=== PATIENT | male | born 1975 | race African-American/Black ===

== ENCOUNTER 2023-11-28 20:35 | Inpatient (IN) | payer MEDICAID, SELFPAY ==
[2023-11-28 20:36] VITALS: BP 120/78; PULSE 82; RESP 16; TEMP 36.6; O2SAT 98; BMI 30.4
--- NOTE | 2023-11-28 21:15 | EDS_ITS ---
HPI History of Present Illness Chief Complaint: ETOH Intox Informant: patient Narrative Narrative: Patient presents requesting alcohol detox. He states he is lost several family members recently to alcoholism and cirrhosis and decides he wants to stop drinking. He tells me he has been drinking wild Yadira. He states a friend is also been giving him some pills. When asked specifically what this is he believes they were Xanax pills. Patient's last drink was earlier today. Patient is a poor historian. He tells me has a history of epilepsy as well as asthma. When I review records and [facility], I find an ER note from [facility] in January 2023 that indicates he has a history of CVA with thrombectomy, depression, diabetes, dyslipidemia, hypercoagulable state on chronic Plavix and warfarin, DVT. PFSH PFS Medical History (Updated 11/28/23 @ 22:[address] Janie Marks MD) AA (alcohol abuse) Asthma CVA (cerebral vascular accident) Depression Diabetes DVT (deep venous thrombosis) Epilepsy High cholesterol HTN (hypertension) Hypercoagulable state Home Medications oxcarbazepine 300 mg tablet (Trileptal) 300 mg PO BID 11/28/23 [History Last Taken Unknown] Allergy/AdvReac Type Severity Reaction Status Date / Time enoxaparin [From Lovenox] Allergy Angioedema Verified 11/28/23 20:41 Iodinated Contrast Media Allergy Angioedema Verified 11/28/23 20:41 pork derived (porcine) Allergy Anaphylaxis Verified 11/28/23 20:41 Surgical History (Updated 11/28/23 @ 22:[address] Dina Jalloh MD) H/O vascular surgery Social History Smoking Status: Never smoker ROS ROS ED Constitutional Constitutional ED: Denies chills or fever(s) Eyes Eyes: Denies change in vision ENT ENT ED: Denies rhinorrhea Cardiovascular Cardiovascular: Denies chest pain or palpitations Respiratory/Chest Respiratory/Chest: Denies cough or dyspnea Gastrointestinal Gastrointestinal: Denies abdominal pain, diarrhea, nausea or vomiting Genitourinary Genitourinary ED: Denies dysuria Neurologic Neurologic: Denies headache(s) Psychiatric Psychiatric: Reports anxiety EXAM Physical Exam Const Vital Signs: 11/28/23 20:36 Temperature 97.8 F Temperature Source Temporal Pulse Rate 82 Respiratory Rate 16 Blood Pressure 120/78 Blood Pressure Mean 92 Pulse Ox 98 Oxygen Delivery Method Room Air Positive well nourished and well developed General Appearance ED: well developed HEENT Reports moist mucous membranes Eyes EOMs intact bilaterally Chest Wall inspection of chest normal and palpation of chest normal Resp normal respiratory effort and clear to auscultation bilaterally Cardio regular rate and regular rhythm GI non-tender Palpation: soft Extremity Extremity Narrative: Old scarring noted to left lower extremity. Neuro oriented x3 Neuro Narrative: Slurred speech which appears chronic from prior stroke. Skin no rashes or lesions noted MDM MDM MDM Narrative Medical decision making narrative: Lab work for addiction medicine obtained. Patient's urine tox screen is positive for benzos and cocaine. Nursing staff has been able to establish an IV line but not get blood. Lab will be up to drawl blood work. I spoke with hospitalist and patient be admitted to [facility] [place]. Lab Data Labs: Laboratory Results - last 24 hr 11/28/23 20:50 Urine Opiates Screen NEGATIVE Urine Methadone Screen NEGATIVE Ur Barbiturates Screen NEGATIVE Ur Phencyclidine Scrn NEGATIVE Ur Amphetamines Screen NEGATIVE MDMA (Ecstasy) Screen NEGATIVE U Benzodiazepines Scrn POSITIVE H Urine Cocaine Screen POSITIVE H U Cannabinoids Screen NEGATIVE Ur Drug Screen Comment Discharge Plan Triage Chief Complaint: ETOH Intox ED Provider: Janei Marks Dx/Rx/DC Orders Clinical Impression: Desire for detoxification, Alcohol abuse Prescriptions: No Action oxcarbazepine [Trileptal] 300 mg tablet 300 mg PO BID Primary Care Provider: Care Physician,No Primary Referrals: NOT,DEFINED [Non-Staff] - Disposition Disposition: Acute Care Hospital [facility]
[2023-11-28 21:35] LABS: Amphetamine Urine VISTA NEGATIVE (<1000 ng/mL); Barbiturate Urine VISTA NEGATIVE (< 200 ng/mL); Benzodiazepine Urine VISTA POSITIVE (< 200 ng/mL); Cocaine Urine VISTA POSITIVE (< 300 ng/mL); Ecstacy Urine VISTA NEGATIVE (< 500 ng/mL); Methadone Urine VISTA NEGATIVE (< 300 ng/mL); PCP Urine VISTA NEGATIVE (< 25 ng/mL); THC Urine VISTA NEGATIVE (< 50 ng/mL); Vista UDS pH Range 5
--- NOTE | 2023-11-28 22:45 | PCM.HP.STD ---
HPI - General General Date of Admission: 11/28/23 Date of Service: 11/28/23 Chief Complaint: Alcohol withdrawal treatment request. HPI Narrative The patient is a 48 y/o M w/ PMHx: Hx CVA s/p thrombectomy w/ chronic R sided facial droop/dysarthria, Anxiety and Depression/schizophrenia/bipolar disorder, Asthma/COPD, Chronic anemia, Hx VTE (DVT, PE), Epilepsy, GERD, HTN, HLD, Hypercoagulable state (unclear specifics), Polysubstance abuse history with Possible Hepatitis C who presents to the [facility] ED on 11/28/23 with specific request for alcohol detoxification as he notes that he drinks wild Yadira heavily and has had several family past secondary to alcoholic cirrhosis including his parents with his last drink he reports earlier in the day on day of presentation and also notes that he does take random pills from his friend which may have included also Xanax. Patient notes very minimal nausea, mild tremors and tactile disturbances. He does report that given his intention to discontinue alcohol consumption he thought that he was able to go off of some of his medications including his Coumadin as alcohol abuse he felt was because of his stroke and his hypercoagulable state. These items were discussed at length and appropriate medication intake was again discussed. Workup in the ED included T97.8, heart rate 82, BP 120/78, respiratory rate 16, 98% on room air, CBC with WBC 6.1, human 14.6, platelet 210 with increased immature granulocytes, BMP with chloride 108, BUN/creatinine 13/0.68, calcium 8.4 otherwise unremarkable, hepatic profile unremarkable, UDS with positive benzodiazepines and cocaine, ethyl alcohol less than 3. c. [facility] Medical History (Updated 11/29/23 @ 01:[address] Dina Jalloh MD) AA (alcohol abuse) Anemia Anxiety and depression Asthma-COPD overlap syndrome Bipolar disorder CVA (cerebral vascular accident) Epilepsy GERD (gastroesophageal reflux disease) Hepatitis High cholesterol History of venous thromboembolism HTN (hypertension) Hypercoagulable state Kidney stones Migraines Schizophrenia Substance abuse Home Medications atorvastatin 20 mg tablet 20 mg PO DAILY HLD 11/28/23 [History Last Taken Unknown] budesonide-formoterol HFA 160 mcg-4.5 mcg/actuation aerosol inhaler (Symbicort) 2 inh inhalation Q12H COPD 11/28/23 [History Last Taken Unknown] levetiracetam 500 mg tablet 500 mg PO BID Seizure 11/28/23 [History Last Taken Unknown] oxcarbazepine 300 mg tablet (Trileptal) 300 mg PO BID 11/28/23 [History Last Taken Unknown] Allergy/AdvReac Type Severity Reaction Status Date / Time enoxaparin [From Lovenox] Allergy Angioedema Verified 11/28/23 20:41 Iodinated Contrast Media Allergy Angioedema Verified 11/28/23 20:41 pork derived (porcine) Allergy Anaphylaxis Verified 11/28/23 20:41 Family History (Updated 11/29/23 @ 01:[address] iDna Jalloh MD) Mother Seizures Hypertension Alcoholic cirrhosis Alcohol abuse Heart disease Father Seizures Hypertension Alcoholic cirrhosis Alcohol abuse Heart disease Surgical History (Updated 11/28/23 @ 22:[address] Dina Jalloh MD) H/O vascular surgery Social History (Updated 11/29/23 @ 01:[address] Dina Jalloh MD) household members: other details: Reports living at the [facility]. Smoking Status: Never smoker alcohol intake: current alcohol intake frequency: 3 or more drinks per day Alcohol type: hard liquor substance use type: other details: Notes taking pills friends give him including xanax. ROS ROS Narrative Admission Review of Systems: CONSTITUTIONAL: No weight loss, fever, chills, + weakness or fatigue. HEENT: Eyes: No visual loss, blurred vision, double vision or yellow sclerae. Ears, Nose, Throat: No hearing loss, sneezing, congestion, runny nose or sore throat. SKIN: No rash or itching, lesions, wounds. CARDIOVASCULAR: No chest pain, chest pressure or chest discomfort, palpitations, edema, orthopnea, syncopal events. RESPIRATORY: No shortness of breath, cough or sputum, wheezing, hemoptysis. GASTROINTESTINAL: + anorexia, nausea without vomiting. No diarrhea, abdominal pain, melena, BRBPR. GENITOURINARY: No dysuria, frequency, urgency or retention. NEUROLOGICAL: + Mild tremors and tactile disturbances, history of previous CVA with chronic deficits including right-sided facial droop, dysarthria, history of seizure disorder.. No headache, dizziness, syncope, paralysis, ataxia, change in bowel or bladder control. MUSCULOSKELETAL: + muscle, back pain, joint pain or stiffness. HEMATOLOGIC: + anemia. Recent discontinuation of Coumadin for patient with previous easy bleeding/bruising. LYMPHATICS: No enlarged nodes. No history of splenectomy. PSYCHIATRIC: + History of anxiety and depression/bipolar disorder/schizophrenia. ENDOCRINOLOGIC: No reports of sweating, cold or heat intolerance. No polyuria or polydipsia. ALLERGIES: + History of asthma, angioedema, anaphylaxis. Vital Signs Vital Signs Vital Signs: 11/28/23 20:36 11/28/23 23:21 11/28/23 23:42 Temperature 97.8 F 97.9 F Temperature Source Temporal Pulse Rate 82 66 68 Respiratory Rate 16 18 18 Blood Pressure 120/78 116/75 118/84 H Blood Pressure Mean 92 88 95 Pulse Ox 98 100 100 Oxygen Delivery Method Room Air Room Air 11/29/23 00:40 Temperature Temperature Source Pulse Rate Respiratory Rate Blood Pressure Blood Pressure Mean Pulse Ox 99 Oxygen Delivery Method Room Air Weight Weight: 196 lb 3.382 oz Body Mass Index (BMI) 29.8 Physical Exam Narrative Physical Examination: General: Awake, alert, oriented x 3 and cooperative, seated upright in the ED bed, notes mild withdrawal symptoms currently including tactile disturbances and tremors. Skin: Normal color, normal turgor, no icterus, no cyanosis. HEENT: AT/NC, EOMI, PERRLA, mildly dry MM, right facial droop evident with chronic dysarthria, no carotid bruits or JVD noted. Lungs: Mildly diminished, greater bases, appropriate effort, no rales, ronchi or wheezing. Heart: Regular rate and rhythm; no gallop, rub audible. Abdomen: Soft, overweight, NTTP, ND, mildly hyperactive BS, mild HM appreciated. Extremities: No cyanosis, clubbing, or edema. Neurological: Patient awake, alert, oriented as noted, cognitive function suspect currently at baseline status post previous CVA; pupils equally reactive to light and accommodation, cranial nerves grossly normal, moving extremities, previous CVA as noted, strength moderately global decreased secondary to underlying comorbidities and current acute alcohol withdrawal symptoms. Psychiatric: Affect appears mildly restless, fatigued, no acute evidence of depressive or anxiety feelings but does have notable underlying history as well as bipolar disorder and schizophrenia. Results Lab / Micro Data 11/28/23 23:36 11/28/23 23:36 Labs: Laboratory Results - last 24 hr 11/28/23 20:50: Urine Opiates Screen NEGATIVE, Urine Methadone Screen NEGATIVE, Ur Barbiturates Screen NEGATIVE, Ur Phencyclidine Scrn NEGATIVE, Ur Amphetamines Screen NEGATIVE, MDMA (Ecstasy) Screen NEGATIVE, U Benzodiazepines Scrn POSITIVE H, Urine Cocaine Screen POSITIVE H, U Cannabinoids Screen NEGATIVE, Ur Drug Screen Comment 11/28/23 23:36: WBC 6.1, RBC 5.17, Hgb 14.6, Hct 43.8, MCV 84.7, MCH 28.2, MCHC 33.3, RDW Std Deviation 42.5, RDW Coeff of Matthew 13.9, Plt Count 210, MPV 10.3, Immature Gran % (Auto) 1.800 H, Neut % (Auto) 69.7, Lymph % (Auto) 19.7, Morrill % (Auto) 6.9, Eos % (Auto) 1.1, Baso % (Auto) 0.8, Absolute Neuts (auto) 4.2, Absolute Lymphs (auto) 1.20, Nucleated RBC % 0, PT 13.9, INR 1.1, Sodium 139, Potassium 4.4, Chloride 108 H, Carbon Dioxide 25.0, Anion Gap 6, BUN 13, Creatinine 0.68 L, Estim Creat Clear Calc 146.68, Est GFR (MDRD) Af Amer 158, Est GFR (MDRD) Non-Af 131, BUN/Creatinine Ratio 19.1, Glucose 105, Calcium 8.4 L, Phosphorus 2.8, Magnesium 2.0, Total Bilirubin 0.40, AST 17, ALT 26, Alkaline Phosphatase 96, Total Protein 7.1, Albumin 3.7, Globulin 3.4, Albumin/Globulin Ratio 1.1, Ethyl Alcohol < 3.0 Assessment & Plan Assessment/Plan (1) Desire for detoxification: PLAN: Plan The patient is a 48 y/o M w/ PMHx: Hx CVA s/p thrombectomy w/ chronic R sided facial droop/dysarthria, Anxiety and Depression/schizophrenia/bipolar disorder, Asthma/COPD, Chronic anemia, Hx VTE (DVT, PE), Epilepsy, GERD, HTN, HLD, Hypercoagulable state (unclear specifics), Polysubstance abuse history with Possible Hepatitis C who presents to the [facility] ED on 11/28/23 with specific request for alcohol detoxification as he notes that he drinks wild Yadira heavily and has had several family past secondary to alcoholic cirrhosis including his parents with his last drink he reports earlier in the day on day of presentation and also notes that he does take random pills from his friend which may have included also Xanax. #1. Acute EtOH Withdrawal: Will admit to [facility], routine labs obtained in the ED upon presentation as noted. Given interest in sobriety, will initiate and continue on protocol with taper course of Phenobarbital, as needed gabapentin, Catapres, Bentyl, Vistaril, IV fluids, IV antiemetics, Tylenol as needed for pain. Will consult Case management for assistance for transition to next level of rehabilitation care. Mag, phos pending. Maintain on CIWA protocol concurrently. #2. Homeless status: Patient currently residing at the [facility] he notes but from discussion with staff patient may not always have a place to stay and do think that he likely is homeless, case management/social work consulted as patient is certainly high risk for failure to follow-up as evidenced also by his inability to appropriately keep on his medications, high risk for return. #3. History of VTE with reported hypercoagulable state, unclear specific type: Patient with history of DVT, PE, for unclear reasons patient was under the assumption that if he stopped drinking alcohol he does not need to be on Coumadin however discussed that we would need to restart this medication. He does have history of significant reaction to Lovenox and he is uncertain of prior history or reaction to heparin therefore we will start Coumadin with a low-dose and continue to closely trend INR. #4. History CVA: Status post thrombectomy, chronic deficits including right facial droop and dysarthria, will continue asa, restarting coumadin as patient had stopped ~ 1 week prior he notes, will resume statin therapy, BP normal range thus will defer hypertensive regimen, hemoglobin A1c requested to be cautious given unclear history. #5. Concern for Polysubstance Abuse, Possible History of Hepatitis, unclear type: UDS with benzodiazepines and cocaine of note, Will obtain hepatitis panel, RPR and HIV, encouraged clean status and avoidance of taking random pills given to him. #6. Chronic COPD/asthma: Will hold home inhaler and in the interim will place on ATC budesonide therapy, PRN albuterol, HOB, IS parameters. #7. Epilepsy: Clarifying but currently medications listed include Trileptal and Keppra, will continue both but adjust once medications confirmed. #8. Anxiety and depression/bipolar disorder/schizophrenia: Currently clarify medications as certainly Trileptal could be primarily for his bipolar disorder but he also does have epilepsy history, no other psychiatric medications noted but confirming. #9. Chronic anemia: Reported history potentially per patient, admission hemoglobin 14.6, MCV 84.7, unclear baseline. #10. Tobacco Abuse: Encouraged cessation, inpatient consultation per RT, NR if desired. #11. GERD: We will have Mylanta as needed regimen. #12. DVT prophylaxis: As noted will resume Coumadin, defer overlap as patient is a poor historian already reports a history of angioedema with Lovenox, unsure of heparin, additionally will place on SCDs as initially very subtherapeutic. Charges/Coding Visit Charges Inpatient E&M: 87840 Init Hosp L3
[2023-11-28 23:21] VITALS: BP 116/75; PULSE 66; RESP 18; O2SAT 100
[2023-11-28 23:42] VITALS: BP 118/84; PULSE 68; RESP 18; TEMP 36.6; O2SAT 100
--- NOTE | 2023-11-28 23:44 | ED.RN ---
Pt is a very difficult stick for an IV and labs,multiple nurses attempted.
[2023-11-29] VITALS (8 sets, daily range): BP systolic 106–117; BP diastolic 57–75; PULSE 69–85; RESP 16–18; TEMP 36.4–36.6; O2SAT 96–100; BMI 29.8
[2023-11-29 00:20] LABS: Alcohol, Blood (Medical)-Serum < 3.0 mg/dL
[2023-11-29 00:21] LABS: Phosphorus 2.8 mg/dL (2.5-4.9)
[2023-11-29 00:23] LABS: ALB/GLOB Ratio 1.1 RATIO (0.9-2.4); AST(SGOT) 17 U/L (15-37); Alanine Aminotransfer ALT/SGPT 26 U/L (16-61); Albumin, Serum 3.7 g/dL (3.2-5.0); Alkaline Phosphatase 96 U/L (45-117); Anion Gap 6 (5-15); BUN 13 mg/dL (7-18); BUN/Creat Ratio 19.1 RATIO (10-20); Calcium,Total 8.4 mg/dL (8.5-10.1); Chloride 108 mmol/L (98-107); Creatinine, Serum 0.68 mg/dL (0.70-1.30); EST Glomerular Filtration Rate 131 mL/min (>60); Est Glom Filt Rate - Afr Amer 158 mL/min (>60); Estimated Creatinine Clearance 146.68 ml/min; Globulin 3.4 g/dL (2.2-4.2); Glucose 105 mg/dL (74-106); Potassium 4.4 mmol/L (3.5-5.1); Protein, Total 7.1 g/dL (6.4-8.2); Sodium Level 139 mmol/L (136-145)
[2023-11-29 00:30] LABS: International Normalized Ratio 1.1; Prothrombin Time (Protime)PT. 13.9 SECONDS (11.7-14.9)
[2023-11-29 01:02] LABS: Absolute Neutrophil Count 4.2 X10^3/uL (2.0-7.7); Basophil# 0.05 X10^3/uL; Basophil% 0.8 % (0-1); Eosinophil# 0.07 X10^3/uL; Eosinophils% 1.1 % (0-5); Hematocrit 43.8 % (40-54); Hemoglobin 14.6 g/dL (13.0-16.5); Lymphocyte % 19.7 % (19-41); Mean Corp Hgb Conc 33.3 g/dL (32-36); Mean Corpuscular Hgb 28.2 pg (27.0-32.0); Mean Corpuscular Volume 84.7 fL (80-94); Mean Platelet Vol. 10.3 fl (6.2-12.0); Monocyte# 0.42 X10^3/uL; Monocyte% 6.9 % (0-10); NRBC Flagged by Analyzer 0 % (0-5); Neutrophil # 4.24 X10^3/uL (2.7-7.7); Neutrophil % 69.7 % (47-70); Platelet Count 210 K/mm3 (150-450); RBC Distribution Width CV 13.9 % (11.6-14.6); RBC Distribution Width SD 42.5 fl (35.1-43.9); Red Blood Count 5.17 M/mm3 (4.6-6.2); White Blood Count 6.1 K/mm3 (4.4-11.0)
[2023-11-29] MEDS: traZODone 100 MG Tablet PO (01:06)
[2023-11-29] MEDS: Phenobarbital 32.4 MG Tablet 97.2 MG PO ×5 (01:06→15:37)
[2023-11-29] MEDS: Lactated Ringers 1,000 ML 125 ML IV (01:06)
[2023-11-29] MEDS: hydrOXYzine PAM 25 MG Capsule 50 MG PO (01:06)
[2023-11-29] MEDS: 0.9% Saline Lock 10 ML Syringe IV (01:08)
[2023-11-29] MEDS: Albuterol 2.5 MG/3 ML VIAL.NEB. INHALATION ×2 (06:58→13:54)
[2023-11-29] MEDS: Budesonide Respules 0.5 MG/2 ML AMPUL.NEB. INHALATION (06:59)
[2023-11-29] MEDS: Folic Acid 1 MG Tablet PO (07:40)
[2023-11-29] MEDS: Thiamine Hydrochloride 100 MG Tablet PO (07:40)
[2023-11-29] MEDS: Multivitamins,Ther W-Minerals Tablet 1 TABLET PO (07:40)
[2023-11-29] MEDS: Aspirin 81 MG TAB.CHEW PO (07:41)
[2023-11-29] MEDS: levETIRAcetam 500 MG Tablet PO (07:41)
[2023-11-29] MEDS: OXcarbazepine 300 MG Tablet PO (07:41)
[2023-11-29] MEDS: Acetaminophen 325 MG Tablet 650 MG PO (07:44)
[2023-11-29] MEDS: Dicyclomine 10 MG Capsule 20 MG PO (07:44)
[2023-11-29] MEDS: Ondansetron 8 MG Tablet PO (07:44)
[2023-11-29] MEDS: Ensure Plus High Protein 120 ML LIQUID PO (07:48)
[2023-11-29 08:08] LABS: International Normalized Ratio 1.1; Prothrombin Time (Protime)PT. 13.7 SECONDS (11.7-14.9)
--- NOTE | 2023-11-29 09:03 | PN.HOSP_ITS ---
Subjective Subjective No new issues overnight, CIWA score 15 this morning Objective Data Objective Data Vital Signs: Vital Signs Temp Pulse Resp BP Pulse Ox O2 Del Method 97.6 F L 77 16 106/75 96 Room Air 11/29/23 08:47 11/29/23 08:47 11/29/23 08:47 11/29/23 08:47 11/29/23 08:47 11/29/23 08:47 Oxygen Delivery Method Room Air Weight: 196 lb 3.382 oz Body Mass Index (BMI) 29.8 Lab / Micro Data 11/28/23 23:36 11/28/23 23:36 Labs: Laboratory Results - last 24 hr 11/28/23 20:50: Urine Opiates Screen NEGATIVE, Urine Methadone Screen NEGATIVE, Ur Barbiturates Screen NEGATIVE, Ur Phencyclidine Scrn NEGATIVE, Ur Amphetamines Screen NEGATIVE, MDMA (Ecstasy) Screen NEGATIVE, U Benzodiazepines Scrn POSITIVE H, Urine Cocaine Screen POSITIVE H, U Cannabinoids Screen NEGATIVE, Ur Drug Screen Comment 11/28/23 23:36: WBC 6.1, RBC 5.17, Hgb 14.6, Hct 43.8, MCV 84.7, MCH 28.2, MCHC 33.3, RDW Std Deviation 42.5, RDW Coeff of Matthew 13.9, Plt Count 210, MPV 10.3, Immature Gran % (Auto) 1.800 H, Neut % (Auto) 69.7, Lymph % (Auto) 19.7, Dougherty % (Auto) 6.9, Eos % (Auto) 1.1, Baso % (Auto) 0.8, Absolute Neuts (auto) 4.2, Absolute Lymphs (auto) 1.20, Nucleated RBC % 0, PT 13.9, INR 1.1, Sodium 139, Potassium 4.4, Chloride 108 H, Carbon Dioxide 25.0, Anion Gap 6, BUN 13, Creatinine 0.68 L, Estim Creat Clear Calc 146.68, Est GFR (MDRD) Af Amer 158, Est GFR (MDRD) Non-Af 131, BUN/Creatinine Ratio 19.1, Glucose 105, Calcium 8.4 L , Phosphorus 2.8, Magnesium 2.0, Total Bilirubin 0.40, AST 17, ALT 26, Alkaline Phosphatase 96, Total Protein 7.1, Albumin 3.7, Globulin 3.4, Albumin/Globulin Ratio 1.1, Ethyl Alcohol < 3.0 11/29/23 07:30: PT 13.7, INR 1.1 Physical Exam Narrative General: Alert, Oriented x3, Cooperative, No apparent distress HEENT: Atraumatic, PERRLA, EOMI, Normocephalic Oral: Moist Mucosa Neck: Supple, No JVD Lungs: Diminished, Normal air movement, No rhonchi, No wheeze, No rales Cardiovascular: Regular rate, Regular Rhythm, Normal S1, Normal S2, No murmurs Abdomen: Soft, Non Tender, Non-Distended, No Hepato-splenomegaly Extremities: No edema, Capillary Refill Less than 3 Seconds Skin: No rashes, No breakdown Musculoskeletal: No Tenderness to Palpation of Joints or Extremities Neurological: No focal neurological deficits, Motor Exam 5/5 strength throughout, Sensory exam intact to light touch and pain, chronic right facial droop with chronic dysarthria Psych/Mental Status: Flat Assessment & Plan Assessment/Plan (1) Desire for detoxification: PLAN: Plan 1. Acute alcohol withdrawal/homeless status/possible polysubstance abuse/tobacco abuse/bipolar disorder/schizophrenia ? Will consult case management for his homeless status ? Continue with the alcohol withdrawal protocol ? Given the concern for history of polysubstance abuse, hepatitis panel as well as syphilis and HIV have been ordered ? Will have him follow-up with 180 to establish outpatient intervention ? Discussed tobacco cessation ? Continue with his home meds it is possible that he is on oxcarbazepine for his bipolar disorder 2. History of VTE with reported hypercoagulable state/history of CVA/epilepsy ? She is status post thrombectomy for CVA does have chronic deficits ? Will restart his Coumadin which had been stopped 1 week prior to admission ? Continue with his home medications ? Unclear if the epilepsy started prior to his CVA or after continue with his home meds 3. Chronic COPD ? Continue with inhalers ? Not in exacerbation DVT: Coumadin Charges/Coding Visit Charges Inpatient E&M: 63998 Subs Hosp L2
[2023-11-29 11:17] LABS: Bedside Glucose 225 mg/dL (74-106)
[2023-11-29 11:19] LABS: HIV - WCH Non-Reactive (Nonreactive); Hepatitis B Surface Antibody Non-Reactive; Hepatitis B Surface Antigen Preliminary Reactive (Nonreactive); Hepatitis C Antibody Non-Reactive (Nonreactive); Syphilis Antibodies Reactive
[2023-11-29] MEDS: Glucerna Shake 120 ML LIQUID PO ×2 (12:20→17:11)
--- NOTE | 2023-11-29 14:18 | ADDICTION ---
Met with Pt to complete assessments. Pt was A&Ox4. Pt has agreed to residential treatment. he has been approved at [facility] in [place]. Pt will be transported by [facility] Saturday. They will call once they arrive. It should be by 11am. They will call when they arrive.
--- NOTE | 2023-11-29 14:22 | CHAPLAIN ---
Type of Pastoral Visit ___ Initial Visit ___ Follow-up Visit ___ On-call Visit ___ General Patient Visit ___ Spiritual Assessment ___ Family Conference ___ Bereavement ___ Rapid Response ___ Code Blue ___ Other (describe below) Pastoral Care Referral From ___ Patient ___ Family ___ Nurse ___ Physician ___ Police Patrol Lieutenant ___ Director Of State ___ Other (describe below) Sacrament/Intervention ___ Active listening ___ Anointing ___ Anabaptism ___ Bereavement ___ Communion ___ Kristine exploration ___ ___ Life review ___ Prayer ___ Reconciliation ___ Sacrament of Sick ___ Supportive presence ___ Wedding ___ Other (describe below) Pastoral Comments patient is sleeping and did not awaken to his name
[2023-11-29 16:01] LABS: Bedside Glucose 198 mg/dL (74-106)
[2023-11-29 18:07] LABS: Hemoglobin A1c 6.5 % (3.8-5.6)
--- NOTE | 2023-11-29 18:11 | NURSING ---
pt requesting to leave. pt stated that we are lying about him having diabetes. explained to pt that testing today showed syphilis and hep b. explained that pt needs to be treated by a dr and needs to tell any sexual partners to be tested. pt stated he has never had syphilis. pt still wanting to leave ama. ama papers signed.
[2023-11-29 18:21] LABS: Bedside Glucose 261 mg/dL (74-106)
[2023-12-05 19:07] LABS: Trileptal-Oxcarbazepine < 1 ug/mL (10-35)
== END 2023-11-29 18:21 | disposition left against medical advice (07) | DRG 770 ==
LOC: ED 22:45 → MS3 22:55
PROVIDERS: Admitting Provider Family Medicine; Emergency Provider Emergency Medicine; Visit Provider Family Medicine
DX: F10.239 Alcohol dependence with withdrawal, unspecified (principal); D64.9 Anemia, unspecified; E11.9 Type 2 diabetes mellitus without complications; F20.9 Schizophrenia, unspecified; E78.00 Pure hypercholesterolemia, unspecified; J44.9 Chronic obstructive pulmonary disease, unspecified; G40.909 Epilepsy, unspecified, not intractable, without status epilepticus; F31.9 Bipolar disorder, unspecified; I10 Essential (primary) hypertension; K21.9 Gastro-esophageal reflux disease without esophagitis; Z79.01 Long term (current) use of anticoagulants; Z59.01 Sheltered homelessness; Y90.0 Blood alcohol level of less than 20 mg/100 ml; Z86.718 Personal history of other venous thrombosis and embolism; Z86.73 Personal history of transient ischemic attack (TIA), and cerebral infarction without residual deficits
CPT/HCPCS: 36415; 80053; 80307; 80320; 82542; 82962; 83036; 83735; 84100; 85025; 85610; 86703; 86706; 86780; 86803; 87340; 94640; 97802; 99283; J7050; J7120; A4216; G0480